=== PATIENT | male | born 1975 | race African-American/Black ===

== ENCOUNTER → 2025-02-22 | Day surgery (SDC) | payer OTHER ==
[~2025-02-22] VITALS: Ht 170.2 cm; Wt 81.8 kg
[~2025-02-22] MED LIST: GABA-1181 PO; IBUP-2070 PO; LIDOCAINE/PF 2% 5 ML VIAL ONE; PROPOFOL 1% ISO-OSM 1000 MG/100 ML BOTTLE ONE; SODIUM CHLORIDE 0.9% 1,000 ML ONE
[2025-02-22] MEDS: SODIUM CHLORIDE 0.9% 1,000 ML IV ONE (08:54)
== END | disposition still patient (30) ==
LOC: SURGERY 08:09
PROVIDERS: ATTEND Internal Medicine
DX: R19.5 Other fecal abnormalities (principal); K63.5 Polyp of colon; K64.8 Other hemorrhoids; K64.4 Residual hemorrhoidal skin tags; Z98.890 Other specified postprocedural states; Z79.899 Other long term (current) drug therapy
CPT/HCPCS: 45380; 88305; J3490; J2704; J7030